=== PATIENT | female | born 1970 | race Asian ===

== ENCOUNTER 2025-01-31 16:04 | Outpatient (AMB) | payer OTHER, SELFPAY ==
--- NOTE | 2025-01-31 16:11 | A.OFFVIS_ITS ---
Intake Visit Reasons: 6m Allergies No Known Allergies Allergy (Verified 01/31/25 16:14) Medication List - Last Reconciled 01/31/25 by Nae Cazares CNP doxepin 20 mg (2 x 10 mg) PO BEDTIME 90 days duloxetine 30 mg PO DAILY melatonin mg PO nabumetone 500 mg PO BID topiramate 25 mg PO DAILY PRN zolpidem ER 6.25 mg PO BEDTIME PRN HPI Comments Details: She was doing okay. Headaches were about the same, happening a few times a week. Advil as needed helped. Dizziness was off and on, most often with headaches. Sleep was up and down.? She has chronic daily headache for years for which she was taking 6 Tylenol a day. Headaches increased after fall resulting in bruise on the right forehead and a black eye on 06/13/2018. She also sees a psychiatrist and a therapist for depression. She has not been working. She sometimes gets tremors in her hands when she is working at home. She is being treated for thyroid disorder. [facility], [facility] Medical History (Updated 01/31/25 @ 16:12 by Nae Cazares CNP) Chronic tension headache Depression Review of Systems Const Denies chills, Denies daytime sleepiness, Reports difficulty sleeping, Denies fatigue, Denies fever(s), Denies frequent falls, Reports headache(s), Denies increased appetite, Denies poor appetite, Denies snoring, Denies weakness, Denies weight gain and Denies weight loss Eyes Denies loss of vision ENT Denies vertigo, Reports dizziness, Reports headache(s) and Denies neck pain Card Denies chest pain at rest, Denies chest pain with activity, Denies syncope, Denies leg edema, Denies palpitations, Denies dyspnea and Denies dyspnea on exertion Resp Denies cough, Denies dyspnea, Denies dyspnea on exertion and Denies snoring GI Denies abdominal pain, Denies constipation, Denies heartburn, Denies diarrhea and Denies nausea Denies urinary frequency, Denies urinary incontinence and Denies urinary urgency Musc Denies abnormal gait, Denies back pain, Denies myalgias, Denies arthralgias, Denies neck pain, Denies numbness and Denies tingling Neuro Denies abnormal gait, Denies vertigo, Reports dizziness, Denies syncope, Denies frequent falls, Reports headache(s), Denies lack of coordination, Denies loss of vision, Denies memory loss, Denies numbness, Denies Other visual disturbances, Denies restless legs, Denies seizure-like activity, Denies tingling, Denies paresthesias, Reports tremor(s) and Denies weakness Psych Denies anxiety, Reports depression, Denies auditory hallucinations, Denies memory loss and Denies visual hallucinations Endo Denies fatigue and Denies palpitations Physical Exam Const Other: General Appearance:? normal, in no acute distress. Heart:? S1, S2 normal, no murmurs. Lungs:? clear anteriorly and posteriorly. Musculoskeletal:? normal. Extremities:? no edema. Psych:? alert, oriented, cognitive function intact, cooperative with exam. Neuro Other: Abnormal Neurological Findings:?Small left subocciptal sebacious cyst about 6mm diameter. Mental Status: alert and oriented X 3. Normal attention, orientation, memory, and affect. Cranial Nerves: Pupils are equal, round, and reactive to light. External ocular muscles are intact. Visual scott are full, no ptosis. Face is symmetrical, no facial weakness or droop. Facial sensations are normal. Tongue protrudes in midline. Palate elevates symmetrically. Shoulder shrugging is normal Motor Examination: Normal muscle tone, bulk and strength. No atrophy or fasciculations. No drift of the extended upper extremities. DTR 2+. Plantars are flexor. Sensory Exam: Normal light touch, temperature, pinprick, vibration, and joint- position sensations. Rhomberg sign is absent. Coordination: No ataxia. No titubation. Gait Exam: Within normal limits. Cerebellar Signs: Cdiphb-hi-ynxo is okay. Extrapyramidal System: No tremor, rigidity with normal facial expressions. No bradykinesia. No bradyphrenia. Normal arm swing and posture. No propulsion or retropulsion. Speech: Normal. Results Reviewed Results Reviewed: 07/07/18 CT brain normal 07/15/18 Awake and sleep EEG normal. Assessment & Plan Assessment & Plan (1) Chronic tension headache: Code(s): G44.229 - Chronic tension-type headache, not intractable Category: Medical Qualifiers: Intractability: not intractable Qualified Code(s): G44.229 - Chronic tension-type headache, not intractable Plan: Continue doxepin 10mg 2 capsules at bedtime. Follow up in 6 months or sooner as needed. (2) Dizziness: Code(s): R42 - Dizziness and giddiness Category: Medical (3) Closed head injury: Code(s): S09.90XA - Unspecified injury of head, initial encounter Category: Medical Qualifiers: Encounter type: sequela Qualified Code(s): S09.90XS - Unspecified injury of head, sequela Plan . Medications: Refilled doxepin 20 mg (2 x 10 mg) PO BEDTIME 180 caps 1RF 90 days Coding Level of Care Code Est Pt Level 3 (52411) Diagnoses Chronic tension-type headache, not intractable G44.229 Intractability: not intractable Dizziness R42 Closed head injury, sequela S09.90XS Encounter type: sequela
--- OUTSIDE RECORDS SUMMARY | 2025-01-31 20:21 | XMS_ITS | Clinical Summary ---
Author Organization [facility] Address [address] [place] [phone] Phone Care Team Providers Care Programmer [employer] Name Role Phone Tricia Rod MD Primary Care Provider [phone] Allergies Active Allergy Reactions Criticality Noted Date Comments Azithromycin 07/08/2022 Medications zolpidem (AMBIEN CR) 6.25 MG CR tablet take 1 tablet by mouth everyday at bedtime 3 Active triamcinolone acetonide 0.025 % cream 2 (two) times a day as needed. 1 Active tiZANidine (ZANAFLEX) 4 MG tablet TAKE 1 TABLET BY MOUTH DAILY AT BEDTIME, NEEDED FOR PAIN 3 Active prazosin (MINIPRESS) 5 MG capsule TAKE 1 CAPSULE BY MOUTH AT BEDTIME FOR NIGHTMARES 3 Active omeprazole (PRILOSEC) 40 MG capsule Take by mouth daily. 3 Active nabumetone (RELAFEN) 500 MG tablet Take 500 mg by mouth 2 (two) times a day. 3 Active melatonin 5 mg Tab Take 5 mg by mouth nightly at bedtime as needed. 3 Active LORazepam (ATIVAN) 1 MG tablet TAKE 1 TABLET BY MOUTH TWICE A DAY MAY TAKE AN ADDITIONAL 1/2-1 TAB NEEDED FOR ANXIETY. 3 Active DULoxetine (CYMBALTA) 60 MG capsule Take 60 mg by mouth. 2 Active DULoxetine (CYMBALTA) 30 MG capsule TAKE 1 CAPSULE EVERY MORNING.TAKE 30 MG CAPSULE IN THE AM & 60 MG CAPSULE AT NIGHT TOTAL DOSE 90 MG 3 Active doxepin (SINEQUAN) 10 MG capsule take 2 capsules by mouth every day at bedtime 3 Active calcium carbonate/vitam in D3 (CALCARB 600 WITH VITAMIN D ORAL) Take by mouth. Active clotrimazole (LOTRIMIN) 1 % cream APPLY TO SKIN AND TOENAILS DAILY FOR 12 WEEKS 3 Active alendronate (FOSAMAX) 70 MG tablet Take 1 tablet by mouth every 7 days. 4 Active methIMAzole (TAPAZOLE) 5 MG tabletIndicatio ns:Hyperthyroid ism Take 1 tablet (5 mg total) by mouth every other day. 45 tablet 2 5 Active Active Problems Problem Noted Date Diagnosed Date Hyperthyroidism 07/08/2022 Overview (07/08/2022): ? antibody negative Graves'. Treated with methimazole since around 2016, waiting for records. Had FNA, assumed benign. Very sensitive thyroid bed, cannot tolerate thyroid exam Assessment & Plan (07/21/2024 1:38 PM EDT): Clinically euthyroid on methimazole 5 mg every other day. Last TFTs in 12/2023 were normal on this dose. Labs from today are pending. -Will review labs by phone and adjust methimazole dose accordingly. -Patient will be traveling [place] in the summer, will make sure that she has enough methimazole for her travel. -Reviewed symptoms of hypo and hyperthyroidism, patient to call if concerned -Revisit in 6 to 9 months Assessment & Plan (06/09/2023 2:26 PM EDT): Has been taking 5 mg methimazole every other day consistently. Last TFTs in 01/2023 were normal. Weight is down 3 pounds. Clinically euthyroid. Plan to continue current treatment for now. Had labs today and will adjust dose as needed. Assessment & Plan (01/08/2023 2:06 PM EDT): Hyperthyroidism treated with methimazole since 2016. 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 She had an FNA of the nodule in her thyroid which assumed to be benign but no records. She has a very sensitive thyroid bed and I am unable to palpate the thyroid. No cervical lymphadenopathy. TFTs were normal on 5 mg methimazole every other day in 07/2022. She seems euthyroid except for some hand tremor. Plan to repeat TFTs and adjust treatment as needed. Revisit in 6 months. Reviewed symptoms of hyper and hypothyroidism, patient to call if concerned. 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 She is taking 5 mg methimazole every other day consistently. Lately she is complaining about some cold intolerance. On exam she seems euthyroid. Plan to check TFTs and discuss labs over the phone. [place] of the [place] from [place] to [place] and will need a 3-month supply of methimazole. Will send prescription after labs reviewed. Patient is aware of symptoms of hypo and hyperthyroidism, will call if concerned. Social History Tobacco Use Types Packs/Day Years Used Date Smoking Tobacco: Never Smokeless Tobacco: Never Tobacco Cessation:Counseling Given: Not Answered Alcohol Use Standard Drinks/Week Comments Never 0 (1 standard drink = 0.6 oz pur e alcohol) Education Answer Date Recorded Are you interested in more education? Not on zachary e 07/06/2022 Are you concerned about learning? Not on file 07/06/2022 No 07/06/2022 No 07/06/2022 Digital Access Answer Date Recorded No 08/06/2022 No 08/06/2022 Reliable internet access at home? Not on file 08/06/2022 Device with a working camera? Not on file Comments Unknown Sex and Gender Information Value Date Recorded Sex Assigned at Not on file Legal Sex Female 2:07 PM EDT Gender Identity Not on file Sexual Orientation Not on file Last Filed Vital Signs Vital Sign Reading Time Taken Comments Blood Pressure 110/60 07/21/2024 1:12 PM EDT Pulse 68 12/24/2023 2:17 PM EDT Temperature - - Respiratory Rate - - Oxygen Saturation 98% 12/24/2023 2:17 PM EDT Inhaled Oxygen Concentration - - Weight 59 kg (130 lb) 07/21/2024 1:12 PM EDT Height 153 cm (5' 0.24 ) 07/21/2024 1:12 PM EDT Body Mass Index 25.19 07/21/2024 1:12 PM EDT Plan of Treatment Upcoming Encounters Date Type Department Care Team (Late st Contact Info) Description 03/30/2025 1:20 PM EST Office Visit [facility] [address] [place] [address] Thi Vang MD [address] [place] [id number] [email or web address] Maintenance Due Date Last Done Comments DEPRESSION SCREENING 1982 HEPATITIS C SCREENING 1988 HIV ONE-TIME SCREENING (18-6 5 YEARS) 1988 PAP SMEAR 1991 SCREENING FOR DIABETES 2005 MAMMOGRAM 2010 COLOGUARD 2015 COLONOSCOPY 2015 COLORECTAL CANCER SCREENING 2015 FIT TEST 2015 FOBT 2015 SIGMOIDOSCOPY 2015 VIRTUAL COLONOSCOPY 2015 PNEUMOCOCCAL VACCINES (50+ y ears) (1 of 1 - PCV) 2020 ZOSTER VACCINES (1 of 2) 2020 Adult Td,Tdap Booster 08/10/2023 08/09/2013 INFLUENZA VACCINE (#1) 2024 COVID-19 VACCINE (2 - 2024-2 6 season) 2024 05/31/2020 LIPID PANEL 04/30/2029 04/30/2024 RSV VACCINE (1 - 1-dose 75+ series) 2045 SMOKING STATUS SCREENING (On ce After 26 Yrs) Completed 01/08/2023 HEPATITIS A VACCINES Aged Out No long er eligible based on patient's age to complete this topic HIB VACCINES Aged Out No longer eligi ble based on patient's age to complete this topic MENINGOCOCCAL VACCINES (ACWY) Aged Out No longer eligible based on patient's age to complete this topic MENINGOCOCCAL VACCINES (B) Aged Out N o longer eligible based on patient's age to complete this topic Medical Devices Not on file [place] [address] [place] [address] [facility] [place] [address] [place] [address] [place] [address] [place] [address] [facility] [place] [address] [place] [address] [employer] [place] [place] [address] [place] [address] [employer] Care Teams Programmer Engineering [employer] Scientific Relationship Specialty Start Date End Date Tricia Rod MD [address] [place] [address] [place] [address] PCP - General Internal Medicine 07/08/22 Additional Source Comments The information contained in this document represents components of the legal health record. It is not the complete legal health record.[facility]
--- OUTSIDE RECORDS SUMMARY | 2025-01-31 20:21 | XMS_ITS ---
Author Name [facility] Organization Unknown Care Team Organization Name Specialty Phone Email Start Date End Da te [facility] Tricia Rod Primary Care 07/15/2022 10/27/2023
--- OUTSIDE RECORDS SUMMARY | 2025-01-31 20:21 | XMS_ITS | Encounter Summary ---
Author Organization [facility] Address [address] [place] [address] Care Team Providers Care Client Success Director Name Role Phone Amanda Huang MD Primary Care Provider [phone] Encounter Details Date Type Department Care Team ([facility] Contact Info) Description 12/07/2024 Results Follow-Up Internal Medicine - [place] [address] [facility] [address] [place] [address] Amanda Huang MD [address] [place] [phone] Social History Tobacco Use Types Packs/Day Years Used Date Smoking Tobacco: Never Smokeless Tobacco: Never Alcohol Use Standard Drinks/Week Comments No 0 (1 standard drink = 0.6 oz pur e alcohol) Education Answer Date Recorded What is the highest level of school you have completed or the highest degree you have received? 5th grade 12/06/2024 Comments No Sex and Gender Information Value Date Recorded Sex Assigned at Not on file Legal Sex Female 3:21 PM EST Gender Identity Not on file Sexual Orientation Not on file documented as of this encounter Plan of Treatment Upcoming Encounters Date Type Department Care Team (Late st Contact Info) Description 02/10/2025 4:00 PM EST Evaluation [facility] Out[facility] - [place] [address] [facility] [address] [place] [address] Delaney Gonzalez, PT documented as of this encounter Visit Diagnoses Not on filedocumented in this encounter Care Teams Client Success Director Relationship Specialty Start Date End Date Amanda Huang MD [address] [facility] [address] [place] [address] PCP - General Internal Medicine 02/09/24 documented as of this encounter
--- OUTSIDE RECORDS SUMMARY | 2025-01-31 20:21 | XMS_ITS | Clinical Summary ---
Author Organization [address] Address [address] [place] [id number] Phone Care Team Providers Care Security And Compliance Analyst Name Role Phone Amanda Huang MD Primary Care Provider [phone] Allergies Active Allergy Reactions Criticality Noted Date Comments Azithromycin 06/29/2020 Z-pack hives, itching Medications calcium carbonate-vitami n D 600 mg-10 mcg (400 unit) per tablet Take by mouth daily. Active doxepin (SINEquan) 10 mg capsule Take 10 mg by mouth at bedtime. Active DULoxetine (Drizalma Sprinkle) 60 mg capsule, delayed rel sprinkle Take by mouth. Active LORazepam (ATIVAN) 1 mg tablet Take 1 mg by mouth every 6 hours as needed. Active methIMAzole (TAPAZOLE) 5 mg tablet Take 5 mg by mouth 3 times daily. Active prazosin (MINIPRESS) 2 mg capsule Take 2 mg by mouth at bedtime. Active zolpidem (AMBIEN) 5 mg tablet Take by mouth at bedtime as needed. Active alendronate (FOSAMAX) 70 mg tablet TAKE 1 TABLET BY MOUTH EVERY 7 DAYS 12 tablet 3 04/21/19 25 Active cholecalciferol (Vitamin D3) 50 mcg (2,000 unit) tabletIndication s:Vitamin D deficiency Take 1 tablet (2,000 Units total) by mouth 1 (one) time each day. 90 tablet 1 08/16/19 25 02/11/ 025 Active omeprazole (PriLOSEC) [address] capsule TAKE 1 CAPSULE BY MOUTH 1 TIME EACH DAY. DO NOT CRUSH OR CHEW. 90 capsule 1 10/27/19 25 Active betamethasone dipropionate (DIPROSONE) 0.05 % cream Apply thin layer to affected area BID for 4 weeks then stop. Avoid face and groin. 30 g 1 12/07/19 25 Active naproxen (NAPROSYN) 500 mg tabletIndication s:Chronic right-sided low back pain without sciatica TAKE 1 TABLET BY MOUTH TWICE A DAY NEEDED FOR MILD PAIN 30 tablet 12/20/19 25 Active nabumetone (RELAFEN) 500 mg tablet TAKE 1 TABLET BY MOUTH TWICE A DAY 60 tablet 01/18/20 25 Active tiZANidine (ZANAFLEX) 4 mg tablet TAKE 1 TABLET BY MOUTH EVERY 8 HOURS IF NEEDED FOR MUSCLE SPASMS 90 tablet 1 01/25/20 25 Active tiZANidine (ZANAFLEX) 4 mg tablet TAKE 1 TABLET BY MOUTH EVERY 8 HOURS IF NEEDED FOR MUSCLE SPASMS 90 tablet 1 12/01/19 25 025 Discontinued nabumetone (RELAFEN) 500 mg tablet TAKE 1 TABLET BY MOUTH TWICE A DAY 60 tablet 12/16/19 25 025 Discontinued Active Problems Problem Noted Date Diagnosed Date Hyperlipidemia 12/06/2024 Osteoporosis 04/30/2024 Hyperthyroidism 04/30/2024 Generalized osteoarthritis 04/30/2024 FRANTZ (generalized anxiety disorder) 07/11/2022 PTSD (post-traumatic stress disorder) 07/11/2022 Pure hypercholesterolemia 07/11/2022 Encounters Date Type Department Care Team Description 12/07/2024 Results Follow-Up Internal Medicine [address] [phone] Amanda Huang MD 12/06/2024 4:00 PM EDT Office Visit Internal Medicine [address] [phone] Amanda Huang MD Encounter for annual physical exam (Primary Dx); FRANTZ (generalized anxiety disorder); Generalized osteoarthritis; PTSD (post-traumatic stress disorder); Pure hypercholesterolemia; Hyperthyroidism; Osteoporosis, unspecified osteoporosis type, unspecified pathological fracture presence; Other fatigue; Other abnormal glucose; Encounter for lipid screening for cardiovascular disease; Depression, unspecified depression type; Skin problem; Hand pain, left; Hyperlipidemia, unspecified hyperlipidemia type 12/06/2024 Telephone Internal Medicine [address] [place] [address] Amanda Huang MD from Last 3 Months Immunizations Immunization Administration Dates Next Due Tdap Tetanus diptheria acell ular pertussis (Boostrix; Adacel) 7yo and older 08/09/2013 Surgical History Surgery Date Site/Laterality Comments TUBAL LIGATION Bilateral PROCEDURE: HISTORICAL TUBAL LIGATION Medical History Medical History Date Comments Osteoporosis DX:Osteoporosis FRANTZ (generalized anxiety disorder) DX:FRANTZ (generalized anxiety disorder) PTSD (post-traumatic stress disorder) DX:PTSD (post-traumatic stress disorder) Depression DX:Depression IBS (irritable bowel syndrome) D X:IBS (irritable bowel syndrome) Pure hypercholesterolemia DX:Pur e hypercholesterolemia Hyperthyroidism DX:Hyperthyroidi sm Thyroid nodule DX:Thyroid nodul e GERD (gastroesophageal reflux disease) DX:GERD (gastroesophageal reflux disease) Back pain DX:Back pain Family History Medical History Relation Name Comments No Known Problems Brother 1 No Known Problems Brother 2 No Known Problems Brother 3 No Known Problems Daughter Hypertension Father No Known Problems Maternal Grandfather No Known Problems Maternal Grandmother Stomach cancer Mother No Known Problems Paternal Grandfather No Known Problems Paternal Grandmother No Known Problems Sister 1 No Known Problems Sister 2 No Known Problems Sister 3 No Known Problems Sister 4 No Known Problems Son 1 No Known Problems Son 2 No Known Problems Son 3 Breast cancer Neg Hx Colon cancer Neg Hx Ovarian cancer Neg Hx Uterine cancer Neg Hx Relation Name Status Comments Brother 1 Alive Brother 2 Alive Brother 3 Alive Daughter Alive Father Alive Maternal Grandfather Maternal Grandmother Mother Paternal Grandfather Paternal Grandmother Sister 1 Alive Sister 2 Alive Sister 3 Alive Sister 4 Alive Son 1 Alive Son 2 Alive Son 3 Alive Social History Tobacco Use Types Packs/Day Years Used Date Smoking Tobacco: Never Smokeless Tobacco: Never Tobacco Cessation:Counseling Given: Not Answered Alcohol Use Standard Drinks/Week Comments No 0 [...] on file Sexual Orientation Not on file Obstetrics History Last Filed Vital Signs Vital Sign Reading Time Taken Comments Blood Pressure 112/68 12/06/2024 3:57 PM EDT Pulse 70 12/06/2024 3:57 PM EDT Temperature 36.2 C (97.1 F) 12/06/2024 3:57 PM EDT Respiratory Rate 16 02/04/2024 9:58 AM EST Oxygen Saturation 98% 12/06/2024 3:57 PM EDT Inhaled Oxygen Concentration - - Weight 58.1 kg (128 lb) 12/06/2024 3:57 PM EDT Height 152.4 cm (5') 12/06/2024 3:57 PM EDT Body Mass Index 25 12/06/2024 3:57 PM EDT Plan of Treatment Upcoming Encounters Date Type Department Care Team (Late st Contact Info) Description 02/10/2025 4:00 PM EST Evaluation [address] [phone] Delaney Gonzalez, PT Health Maintenance Due Date Last Done Comments Breast Cancer Screening 1970 Hepatitis B Vaccines (1 of 3 - 19+ 3-dose series) 1989 Pneumococcal Vaccine: 50+ Years (1 of 1 - PCV) 2020 Zoster Vaccines (1 of 2) 2020 HIV Screening 02/16/2022 DTaP,Tdap,and Td Vaccines (2 - Td or Tdap) 08/10/2023 08/09/2013 COVID-19 Vaccine (3 - season) 2024 06/21/2020, 05/31/2020 Influenza Vaccine (#1) 2024 Depression Screening 03/09/2025 Postpon ed from 2024 (Not clinically appropriate to address at this time) Colorectal Cancer Screening: Colonoscopy 04/12/2025 04/12/2015 Cervical Cancer Screening: HPV 06/29/2025 06/29/2020 Social Influencers of Health Screening 12/06/2025 12/06/2024 Cholesterol Screening (Lipid Panel) 12/07/2029 12/07/2024, 08/11/2024, 04/30/2024, Additional history exists Osteoporosis Screening (Bone Density Screening) 03/24/2034 03/24/2024, 01/24/2023, 06/16/2020 RSV Immunization Adult Patients (1 - 1-dose 75+ series) 2045 Hepatitis C Screening Completed 11/15/2022 HIB Vaccines Aged Out No longer eligi ble based on patient's age to complete this topic HPV Vaccines Aged Out No longer eligi ble based on patient's age to complete this topic Hepatitis A Vaccines Aged Out No long er eligible based on patient's age to complete this topic IPV Vaccines Aged Out No longer eligi ble based on patient's age to complete this topic MMR Vaccines Aged Out No longer eligi ble based on patient's age to complete this topic Meningococcal ACWY Vaccine Aged Out N o longer eligible based on patient's age to complete this topic Meningococcal B Vaccine Aged Out No l onger eligible based on patient's age to complete this topic RSV Immunization Patients Under 20 months Aged Out No longer eligible b ased on patient's age to complete this topic Varicella Vaccines Aged Out No longer eligible based on patient's age to complete this topic Procedures Procedure Name Priority Date/Time Associated Diagnosis Comments HEMOGLOBIN A1C Routine 12/07/2024 1:39 PM EDT Encounter for annual physical exam Other abnormal glucose COMPREHENSIVE METABOLIC PANEL Routine 12/07/2024 1:39 PM EDT Encounter for annual physical exam Other fatigue LIPID PANEL WITH REFLEX TO DIRECT LDL Routine 12/07/2024 1:39 PM EDT Encounter for annual physical exam Hyperlipidemia, unspecified hyperlipidemia type THYROID STIMULATING HORMONE WITH REFLEX TO FREE T4 AND FREE T3 Routine 12/07/2024 1:39 PM EDT Hyperthyroidism BD BONE DENSITY DXA APPENDICULAR SKELETON Routine 03/24/2024 3:21 PM EST Age-related osteoporosis without current pathological fracture HEPATITIS C SCREENING Routine 11/15/2022 HPV Routine 06/29/2020 COLONOSCOPY Routine 04/12/2015 from Last 3 Months or Most Recently Relevant to Health Maintenance Results * Thyroid stimulating hormone with reflex to free t4 and free t3 (12/07/2024 1:39 PM EDT) Pathologist [facility] TSH 2.02 0.40 - 4.00 mcIU/mL LAB CHEMISTRY METHOD 12/07/2024 4:52 PM EDT [facility] Blood Venous blood specimen / Unknown Venipuncture / Unknown 12/07/2024 1:39 PM EDT 12/07/2024 1:39 PM EDT us Amanda Huang MD LAB BLOOD ORDERABLES Final Resul t [facility] [address] [place] [address], [place] [phone] * (ABNORMAL) Lipid panel with reflex to direct LDL (12/07/2024 1:39 PM EDT) [facility] Cholesterol 230(H) 0 - 200 mg/dL LAB CHEMISTRY METHOD 12/07/2024 3:32 PM EDT [facility] Triglycerides 160(H) 0 - 150 mg/dL LAB CHEMISTRY METHOD 12/07/2024 3:32 PM T [facility] HDL 76 >=40 mg/dL LAB CHEMISTRY METHOD 12/07/2024 3:32 PM EDT [facility] LDL Calculated 122(H) 0 - 100 mg/dL LAB CHEMISTRY METHOD 12/07/2024 3:32 PM T [facility] Comment:Estimated LDL Calcul ated using equation: Total cholesterol - HDL cholesterol - (Triglycerides/5) VLDL Cholesterol Escobar 32 mg/dL LAB CHEMISTRY METHOD 12/07/2024 3:32 PM EDT [facility] Non HDL Chol. (LDL+VLDL) 154(H) <145 mg/dL LAB CHEMISTRY METHOD 12/07/2024 3:32 PM T [facility] Chol/HDL Ratio 3.0 0.0 - 4.4 LAB CHEMISTRY METHOD 12/07/2024 3:32 PM EDT [facility] Blood Venous blood specimen / Unknown Venipuncture / Unknown 12/07/2024 1:39 PM EDT 12/07/2024 1:39 PM EDT Amanda Huang MD LAB BLOOD ORDERABLES Final Resul t Performing Organization Address [facility]/ZIP Co de Phone Number [facility] [address] [place] [address], [place] [phone] * Hemoglobin A1c (12/07/2024 1:39 PM EDT) Hemoglobin A1C 5.3 <6.5 % LAB CHEMISTRY METHOD 12/07/2024 10:07 PM EDT [facility] Mean Bld Glu Estim. 105 mg/dL LAB CHEMISTRY METHOD 12/07/2024 10:07 PM EDT [facility] Blood Venous blood specimen / Unknown Venipuncture / Unknown 12/07/2024 1:39 PM EDT 12/07/2024 1:39 PM EDT Amanda Huang MD LAB BLOOD ORDERABLES Final Resul t Performing Organization Address [facility]/ZIP Co de Phone Number [facility] [address] [place] [address], [place] [phone] * Comprehensive metabolic panel (12/07/2024 1:39 PM EDT) Pathologist [facility] Sodium 140 133 - 145 mmol/L LAB CHEMISTRY METHOD 12/07/2024 3:32 PM EDT [facility] Potassium 4.2 3.5 - 5.5 mmol/L LAB CHEMISTRY METHOD 12/07/2024 3:32 PM EDT [facility] Chloride 110 96 - 110 mmol/L LAB CHEMISTRY METHOD 12/07/2024 3:32 PM EDT [facility] CO2 25 21 - 32 mmol/L LAB CHEMISTRY METHOD 12/07/2024 3:32 PM [facility] Anion Gap 5 3 - 11 LAB CHEMISTRY METHOD 12/07/2024 3:32 PM [facility] Glucose 84 70 - 100 mg/dL LAB CHEMISTRY METHOD 12/07/2024 3:32 PM [facility] BUN 24 5 - 25 mg/dL LAB CHEMISTRY METHOD 12/07/2024 3:32 PM [facility] Creatinine 0.92 0.50 - 1.10 mg/dL LAB CHEMISTRY METHOD 12/07/2024 3:32 PM [facility] eGFR 74 >=60 mL/min/1. 73m2 LAB CHEMISTRY METHOD 12/07/2024 3:32 PM [facility] Comment:Calculation based on the Chronic Kidney Disease Epidemiology Collaboration (CKD-EPI) equation refit without adjustment for race. BUN/Creatinine Ratio 26.1 LAB CHEMISTRY METHOD 12/07/2024 3:32 PM [facility] Calcium 9.2 8.5 - 10.5 mg/dL LAB CHEMISTRY METHOD 12/07/2024 3:32 PM [facility] AST (SGOT) 21 10 - 42 unit/L LAB CHEMISTRY METHOD 12/07/2024 3:32 PM [facility] ALT (SGPT) 22 10 - 60 unit/L LAB CHEMISTRY METHOD 12/07/2024 3:32 PM [facility] Alkaline Phosphatase 62 42 - 121 unit/L LAB CHEMISTRY METHOD 12/07/2024 3:32 PM [facility] Total Protein 6.9 6.0 - 8.0 g/dL LAB CHEMISTRY METHOD 12/07/2024 3:32 PM [facility] Albumin 3.9 3.2 - 5.0 g/dL LAB CHEMISTRY METHOD 12/07/2024 3:32 PM [facility] Total Bilirubin 0.6 0.0 - 1.4 mg/dL LAB CHEMISTRY METHOD 12/07/2024 3:32 PM EDT [facility] Blood Venous blood specimen / Unknown Venipuncture / Unknown 12/07/2024 1:39 PM EDT 12/07/2024 1:39 PM EDT us Amanda Huang MD LAB BLOOD ORDERABLES Final Resul t [facility] [address] [place] [address], * BD Bone Density DXA Appendicular Skeleton (03/24/2024 3:21 PM EST) Anatomical Region Laterality Modality Body Bone Densitometr y 03/24/2024 5:48 PM EST Impressions 03/24/2024 5:51 PM EST Osteoporosis Reference Information: The T-score is the number of standard deviations above or below the standard which is normal for young adults at their peak bone mineral density. The World Health Organization (WHO) interprets the T-scores as follows: At or above -1 SD Normal bone density Between -1 and -2.5 SD Osteopenia At or below -2.5 SD Osteoporosis -------- FINAL REPORT -------- Dictated By: Lefty Vance Dictated Date: 03/24/2024 17:48 ET Assigned Physician: Lefty Vance Reviewed and Electronically Signed By: Lefty Vance Signed Date: 03/24/2024 17:51 ET Workstation ID: [id number] Transcribed By: Self Edit Transcribed Date: 03/24/2024 17:48 ET Narrative 03/24/2024 5:51 PM EST STUDY: DUAL ENERGY X-RAY ABSORPTIOMETRY / DXA REASON FOR EXAM: Female, 54 years old M81.0 TECHNIQUE: Bone Mineral Density (BMD) measurements of the lumbar spine and left hip were obtained using [employer] Discovery W ([id number]). COMPARISON: January 24, 2023 FINDINGS: L1-L4 BMD: 0.746 g/cm2 L1-L4 T score: -2.7. This corresponds to osteoporosis. This represents a 4.0* % increase in bone density compared with prior exam from January 24, 2023. Left femoral neck BMD: 0.679 g/cm2 Left femoral neck T score: -1.5. This corresponds to osteopenia. Left total hip BMD: 0.764 g/cm2 Left total hip T score: -1.5. This corresponds to osteopenia. This represents a 5.6* % increase in bone density compared with prior exam from January 24, 2023. * - Indicates a statistically significant change. Procedure Note Lefty Vance MD - 03/24/2024 STUDY: DUAL ENERGY X-RAY ABSORPTIOMETRY / DXA REASON FOR EXAM: Female, 54 years old M81.0 TECHNIQUE: Bone Mineral Density (BMD) measurements of the lumbar spineand left hip were obtained using [employer] W ([id number]/N [id number]). COMPARISON: January 24, 2023 FINDINGS: L1-L4 BMD: 0.746 g/cm2 L1-L4 T score: -2.7. This corresponds to osteoporosis. This represents a 4.0* % increase in bone density compared with prior examfrom January 24, 2023. Left femoral neck BMD: 0.679 g/cm2 Left femoral neck T score: -1.5. This corresponds to osteopenia. Left total hip BMD: 0.764 g/cm2 Left total hip T score: -1.5. This corresponds to osteopenia. This represents a 5.6* % increase in bone density compared with prior examfrom January 24, 2023. * - Indicates a statistically significant change. IMPRESSION: Osteoporosis Reference Information: The T-score is the number of standard deviations above or below thestandard which is normal for young adults at their peak bone mineraldensity. The World Health Organization (WHO) interprets the T-scores asfollows: At or above -1 SD Normal bone density Between -1 and -2.5 SD Osteopenia At or below -2.5 SD Osteoporosis -------- FINAL REPORT -------- Dictated By: Lefty Vance Dictated Date: 03/24/2024 17:48 ET Assigned Physician: Lefty Vance Reviewed and Electronically Signed By: Lefty Vance Signed Date: 03/24/2024 17:51 ET Workstation ID: [id number] Transcribed By: Self Edit Transcribed Date: 03/24/2024 17:48 ET Sergio ANDRADE IMG DXA PROCEDURES Final Resu lt * Hepatitis C Screening (11/15/2022) [facility] Hepatitis C Screening Abstracted [facility] Provider HEALTH MAINTENANCE Final Result * Cervical Cancer Screening: HPV (06/29/2020) [facility] Cervical Cancer Screening: HPV Negative, Abstracted [facility] Provider HEALTH MAINTENANCE Final Result * Colonoscopy (04/12/2015) [facility] Colonoscopy No interpretation , Abstracted Anatomical Region Laterality Modality Other Historical Provider HEALTH MAINTENANCE Final Result from Last 3 Months or Most Recently Relevant to Health Maintenance Insurance [facility] Care Teams Security And Compliance Analyst Relationship Specialty Start Date End Date Amanda Huang MD [address] [place] [phone] PCP - General Internal Medicine 02/09/24
== END 2025-01-31 16:18 | disposition home or self-care (01) ==
LOC: HO.HSM 16:04
PROVIDERS: PCP Student in an Organized Health Care Education/Training Program; Referring Provider Internal Medicine; Visit Provider Registered Nurse
DX: G44.229 Chronic tension-type headache, not intractable (principal); R42 Dizziness and giddiness; S09.90XS Unspecified injury of head, sequela
CPT/HCPCS: 99213

== ENCOUNTER → 2025-01-31 16:04 | Outpatient (BNVA) | payer OTHER, SELFPAY | PROVIDERS: PCP Student in an Organized Health Care Education/Training Program; Referring Provider Internal Medicine; Visit Provider Registered Nurse | DX: G44.229 Chronic tension-type headache, not intractable (principal); R42 Dizziness and giddiness; S09.90XS Unspecified injury of head, sequela; X58.XXXS Exposure to other specified factors, sequela; Z79.899 Other long term (current) drug therapy | CPT/HCPCS: 99212 ==